=== PATIENT | male | born 1995 | race Caucasian/White ===

== ENCOUNTER 2017-03-29 20:42 | Emergency (ER) | payer SELFPAY ==
[2017-03-29 20:44] VITALS: BP 126/76; PULSE 82; RESP 16; TEMP 97.6; O2SAT 99
--- NOTE | 2017-03-29 21:22 | PD ---
HPI Chief Complaint: Musculoskeletal Complaint Time Seen by Provider: 21:12 Travel History International Travel<30 days: No Contact w/Intl Traveler<30days: No Traveled to known affect area: No History of Present Illness HPI Patient is a 22-year-old male who presents to the ER with complaints of right sided wrist pain. Patient reports that he was fooling around with his friend today and she rolled onto his right wrist. Patient is right hand dominant. Reports that incident occurred prior to coming to the ER. PFSH Past Medical History Medical History: Denies Significant Hx Past Surgical History Surgical History: No Previous Surgery Social History Alcohol Use: No Tobacco Use: No Substance Use: No Allergies-Medications (Allergen,Severity, Reaction): Coded Allergies: Cephalosporins (Verified Allergy, Unknown, 03/29/17) Penicillins (Verified Allergy, Unknown, 03/29/17) Sulfa (Sulfonamide Antibiotics) (Verified Allergy, Unknown, 03/29/17) omeprazole (Verified Allergy, Unknown, 03/29/17) Reported Meds & Prescriptions Reported Meds & Active Scripts Active No Active Prescriptions or Reported Medications Review of Systems General / Constitutional: No: Fever Eyes: No: Visual changes HENT: No: Headaches Cardiovascular: No: Chest Pain or Discomfort Respiratory: No: Shortness of Breath Gastrointestinal: No: Abdominal Pain Genitourinary: No: Dysuria Musculoskeletal: Positive: Limited ROM (right sided wrist pain), Pain (right sided wrist pain) Skin: No Rash Neurologic: No: Weakness Psychiatric: No: Depression Endocrine: No: Polydipsia Hematologic/Lymphatic: No: Easy Bruising Physical Exam Narrative GENERAL: Well-nourished, well-developed patient. SKIN: Focused skin assessment warm/dry. HEAD: Normocephalic. EYES: No scleral icterus. No injection or drainage. NECK: Supple, trachea midline. No JVD or lymphadenopathy. CARDIOVASCULAR: Regular rate and rhythm without murmurs, gallops, or rubs. RESPIRATORY: Breath sounds equal bilaterally. No accessory muscle use. GASTROINTESTINAL: Abdomen soft, non-tender, nondistended. MUSCULOSKELETAL: No cyanosis, or edema. Patient with no obvious deformities, Patient with pain with ROM to right wrist, pulses intact, neurovascularly intact. Normal rom to all digits. LUE: normal exam BACK: Nontender without obvious deformity. No CVA tenderness. Data Data Last Documented VS Vital Signs Date Time Temp Pulse Resp B/P (MAP) Pulse Ox O2 Delivery O2 Flow Rate FiO2 03/29/17 20:44 97.6 82 16 126/76 (93) 99 Room Air Orders Orders Wrist, Complete ([id number]) (03/29/17 ) Ibuprofen (Motrin) (03/29/17 21:30) Ice/Cold Pack (03/29/17 21:17) MDM Medical Decision Making Medical Screen Exam Complete: Yes Emergency Medical Condition: Yes Medical Record Reviewed: Yes Interpretation(s) Vital Signs Date Time Temp Pulse Resp B/P (MAP) Pulse Ox O2 Delivery O2 Flow Rate FiO2 03/29/17 20:44 97.6 82 16 126/76 (93) 99 Room Air Differential Diagnosis wrist sprain/fx Narrative Course xray of wrist ordered as well as motrin and ice pack Last Impressions Wrist X-Ray 03/29/17 0000 Signed Impressions: Service Date/Time: March 21:22 - CONCLUSION: 1. No acute findings. Edouard Lynch MD patient with no acute findings on xray of wrist. patient with most likely wrist sprain. will place in ilan bandage and have him follow up with ortho as outpatient Diagnosis Primary Impression: Right wrist sprain Qualified Codes: S63.501A - Unspecified sprain of right wrist, initial encounter Patient Instructions: General Instructions Additional Instructions: Please follow up with your primary care doctor Rest/ice/elevation Ibuprofen or acetaminophen for pain Scripts Ibuprofen (Ibuprofen) 600 Mg Tab 600 MG PO Q6H Y for Pain/Inflammation, #40 TAB 0 Refills Prov: Denisse Delarosa DO 03/29/17 Disposition: 01 DISCHARGE HOME Condition: Stable Denisse Delarosa DO Mar 29, 2017 21:22
[2017-03-29] MEDS ORDERED: IBUPROFEN 600 MG TAB PO ONE (21:30)
--- NOTE | 2017-03-29 21:39 | RADRPT ---
EXAM DATE/TIME: 03/29/2017 21:22 [facility] COMPARISON: No previous studies available for comparison. INDICATIONS : Right wrist pain, someone rolled onto wrist MEDICAL HISTORY : None. SURGICAL HISTORY : None. ENCOUNTER: Initial ACUITY: 1 day PAIN SCORE: 7/10 LOCATION: Right Wrist FINDINGS: Three view examination of the right wrist demonstrates no soft tissue swelling, dislocation, or fract ure. The carpal bones are in normal alignment. The joint spaces are maintained. Bony mineralizatio n is normal. CONCLUSION: 1. No acute findings. Edouard Lynch MD on March 29, 2017 at 21:36 Board Certified Radiologist. This report was verified electronically.
[2017-03-29] MEDS ORDERED: IBUP-232 PO (21:50)
== END 2017-03-29 22:28 | disposition home or self-care (01) ==
LOC: NEPD 20:42
DX: S63.501A Unspecified sprain of right wrist, initial encounter (principal); X58.XXXA Exposure to other specified factors, initial encounter
CPT/HCPCS: 73110; 99283